=== PATIENT | female | born 1945 | race Caucasian/White ===

== ENCOUNTER 2025-03-06 10:16 | Observation (INO) | payer MEDICARE ==
[2025-03-05 12:46] LABS: BASOPHILS # (AUTO) 0.1 (0.0-0.1); BASOPHILS % 0.5 % (0.0-1.0); EOSINOPHILS # (AUTO) 0.3 (0.0-0.4); HEMATOCRIT 41.4 % (34.2-44.1); LYMPHOCYTES # (AUTO) 1.4 (1.0-3.2); LYMPHOCYTES % 15.2 % (18.0-39.1); MEAN CORPUSCULAR HEMOGLOBIN 30.6 pg (28-32); MEAN CORPUSCULAR HGB CONC 33.8 g/dL (31-35); MEAN CORPUSCULAR VOLUME 90.4 fL (81-99); MONOCYTES # (AUTO) 0.9 (0.2-0.8); MONOCYTES % 10.1 % (4.4-11.3); NEUTROPHILS # (AUTO) 6.4 (2.1-6.9); NEUTROPHILS % 70.5 % (38.7-80.0); PLATELET COUNT 184 x10e3/uL (140-360); RED BLOOD COUNT 4.58 x10e6/uL (3.6-5.1); WHITE BLOOD COUNT 9.13 x10e3/uL (4.8-10.8)
[2025-03-05 13:09] LABS: ANION GAP 14.2 mmol/L (8-16); CALCIUM 9.4 mg/dL (8.4-10.2); CREATININE, SERUM 0.8 mg/dL (0.57-1.11); POTASSIUM 4.2 mmol/L (3.5-5.1)
[~2025-03-06 10:16] MED LIST: AMLODIPINE BESY10 MG PO; ASPIRIN 325 MG TAB PO SCH; CELECOXIB 100 MG CAP PO SCH; DOCUSATE SODIUM 100 MG CAP PO PRN; GABAPENTIN400 MG PO; HYDROCODONE/APAP 7.5MG-325MG 1 EA TAB PO PRN; KETOROLAC TROMETHAMINE 30 MG/ML VIAL IV PRN; LOSARTAN-HCTZ1 EAC2 PO; MELOXICAM7.5 MG PO; MILK THISTLE500 MG PO; OMEPRAZOLE40 MG PO; ONDANSETRON HCL INJ 2MG/ML 2ML 2 MG/ML VIAL IV PRN; PRESERVISION A1 EAC6 PO; ROPIVACAINE/EPI/CLONIDINE/KET 50 ML SYRINGE INJ ONE; ULTRAM 50MG50 MG PO; VENTOLIN HFA18 GM INH; VITAMIN D325 MCG PO
[2025-03-06] MEDS: LACTATED RINGER'S 1,000 ML ONE (10:58)
[2025-03-06] MEDS: CEFAZOLIN SODIUM 2 GM ONE (10:58)
[2025-03-06] MEDS ORDERED: BUPIVACAINE/EPI 0.5% 30ML SDV-MPF INJ ONE (12:32)
[2025-03-06] MEDS ORDERED: FENTANYL CITRATE/PF 100MCG/2 ML INJ ONE ×2 (12:32→12:47)
[2025-03-06] MEDS ORDERED: MIDAZOLAM HCL 2 MG/2 ML VIAL ONE (12:32)
[2025-03-06] MEDS ORDERED: BUPIVACAINE 0.25% 30ML SDV ONE (12:33)
[2025-03-06] MEDS ORDERED: ROCURONIUM BROMIDE 1 ML IV ONE (12:47)
[2025-03-06] MEDS ORDERED: SEVOFLURANE INHAL SOLN 250 ML PEN BTL ONE (12:48)
[2025-03-06] MEDS ORDERED: PROPOFOL IV EMULSION 10 MG/ML 20 ML VIAL ONE (12:48)
[2025-03-06] MEDS ORDERED: LIDOCAINE 2% /EPINEPHRINE 20 ML SDV INJ ONE (12:48)
[2025-03-06] MEDS ORDERED: PROPOFOL IV EMULSION 50 ML IV ONE ×2 (13:32→14:00)
[2025-03-06] MEDS ORDERED: FAMOTIDINE 20 MG/2 ML VIAL IV ONE (13:49)
[2025-03-06] MEDS ORDERED: DEXAMETHASONE SOD PHOS INJ 4 MG/ML SDV ONE (13:49)
[2025-03-06] MEDS ORDERED: ONDANSETRON HCL INJ 2MG/ML 2ML 2 MG/ML VIAL ONE (13:49)
[2025-03-06] MEDS ORDERED: GLYCOPYRROLATE INJ 0.2 MG/ML VIAL ONE ×2 (13:51→14:20)
[2025-03-06] MEDS ORDERED: ACETAMINOPHEN 1000 MG/100 ML 100 ML IV ONE (14:18)
[2025-03-06] MEDS ORDERED: NEOSTIGMINE 1 MG/ML 10ML VIAL ONE (14:20)
[2025-03-06] MEDS: FENTANYL CITRATE/PF 100MCG/2 ML INJ ONE (15:40)
[2025-03-06 16:50] VITALS: BP 113/71; PULSE 79; RESP 16; O2SAT 94
[2025-03-06] MEDS ORDERED: DEXTROSE 50% SYRINGE 50 ML IV PRN (17:00)
[2025-03-06] MEDS ORDERED: DOCUSATE SODIUM 100 MG CAP PO PRN (17:00)
[2025-03-06] MEDS ORDERED: ALBUTEROL/IPRATROPIUM 3 ML NEB NEB PRN (17:00)
[2025-03-06] MEDS ORDERED: HYDRALAZINE HCL 20 MG/ML VIAL IV PRN (17:00)
[2025-03-06] MEDS ORDERED: ACETAMINOPHEN 325 MG TAB PO PRN (17:00)
[2025-03-06] MEDS ORDERED: LIDOCAINE 4% PATCH TP PRN (17:00)
[2025-03-06] MEDS ORDERED: ENOXAPARIN SOD INJ 40 MG/0.4 ML SYR SC SCH (17:00)
[2025-03-06] MEDS ORDERED: DIPHENHYDRAMINE HCL 25 MG CAP PO PRN (17:00)
[2025-03-06] MEDS ORDERED: BENZONATATE 100 MG CAP PO PRN (17:00)
[2025-03-06] MEDS ORDERED: POTASSIUM CHLORIDE 20 MEQ TAB CR PO PRN (17:00)
[2025-03-06] MEDS ORDERED: MELATONIN 5 MG TABLET PO PRN (17:00)
[2025-03-06] MEDS ORDERED: ONDANSETRON HCL INJ 2MG/ML 2ML 2 MG/ML VIAL IV PRN (17:00)
[2025-03-06] MEDS ORDERED: SIMETHICONE 80 MG CHEW PO PRN (17:00)
[2025-03-06] MEDS ORDERED: PHENYLEPHRINE HCL 1% 10 MG/ML VIAL ONE (18:06)
[2025-03-07] MEDS ORDERED: PANTOPRAZOLE SOD 40 MG TABEC PO SCH (07:30)
== END 2025-03-06 17:57 | disposition home health service (06) ==
LOC: OR 10:16 → PACU V 10:17
PROVIDERS: ADMIT Orthopaedic Surgery Adult Reconstructive Orthopaedic Surgery; ATTEND Orthopaedic Surgery Adult Reconstructive Orthopaedic Surgery
DX: M17.12 Unilateral primary osteoarthritis, left knee (principal); I10 Essential (primary) hypertension; J45.909 Unspecified asthma, uncomplicated; M48.00 Spinal stenosis, site unspecified; Z96.651 Presence of right artificial knee joint; Z01.810 Encounter for preprocedural cardiovascular examination; Z01.812 Encounter for preprocedural laboratory examination; Z01.818 Encounter for other preprocedural examination
CPT/HCPCS: 27447; 36415; 71046; 73560; 80048; 85025; 86850; 86900; 93005; 97116; 97161; C1713; C1776 ×3; G0378; J0131; J1100; J1308; J2004; J2250; J2371; J2405; J2704 ×2; J2710; J3010; J7121